=== PATIENT | female | born 1985 | race Caucasian/White ===

== ENCOUNTER → 2017-02-26 | Outpatient (CLI) | payer BC, MEDICAID ==
--- NOTE | 2017-02-27 15:38 | CR ---
EXAM DATE: 02/26/17 PATIENT'S AGE: 31 Patient: AJAY DECKER Facility: [place], [place] Site . Site : 1985 Study: XRay Knee Right [id number]/27/2017 10:55:57 AM Ordering Physician: Sasha Schumacher Final Report: INDICATION: Pain. TECHNIQUE: Three views COMPARISON: 05 July 2015. FINDINGS: Bones: Alignment is normal. No fractures or bone lesions. Joint spaces: Unremarkable. Soft tissues: Unremarkable. IMPRESSION: Negative. Dictated by Hitesh Martinez MD @ Feb 27 2017 11:35AM (Electronic Signature) Report Signed by Proxy. ANDREW
== END ==
LOC: MW.CHORTHO 08:48
PROVIDERS: ATTEND Physician Assistant
DX: M25.561 Pain in right knee (principal)
CPT/HCPCS: 73562-26-RT; 73562-RT

== ENCOUNTER 2017-07-04 21:38 | Emergency (ER) | payer BC ==
--- NOTE | 2017-07-04 21:58 | EDM.PDOC ---
ED HPI GENERAL MEDICAL PROBLEM - General Chief Complaint: Chest Pain Stated Complaint: PT HAS CHEST PAINS Time Seen by Provider: 07/04/17 21:55 - History of Present Illness INITIAL COMMENTS - FREE TEXT/NARRATIVE: HISTORY AND PHYSICAL: History of present illness: Patient 32-year-old female extensive past medical history including spinal stenosis related ankylosing spondylitis Carlo Smanuel's disease who presents with a concern of chest pain she states she has a lifelong [place] septal defect and right bundle branch block she is followed by cardiology and has an appointment scheduled in the near future for routine follow-up presents today with chest pain is vaguely described she states she is concerned primarily about pneumonia she had no fever chills nausea vomiting or other complaints. Review of systems: As per history of present illness and below otherwise all systems reviewed and negative. Past medical history: As per history of present illness and as reviewed below otherwise noncontributory. Surgical history: As per history of present illness and as reviewed below otherwise noncontributory. Social history: No reported history of drug or alcohol abuse. Family history: As per history of present illness and as reviewed below otherwise noncontributory. Physical exam: HEENT: Atraumatic, normocephalic, pupils reactive, negative for conjunctival pallor or scleral icterus, mucous membranes moist, throat clear, neck supple, nontender, trachea midline. Lungs: Clear to auscultation, breath sounds equal bilaterally, chest nontender. Heart: S1S2, regular, negative for clicks, rubs, or JVD. Abdomen: Soft, nondistended, nontender. Negative for masses or hepatosplenomegaly. Negative for costovertebral tenderness. Pelvis: Stable nontender. Genitourinary: Deferred. Rectal: Deferred. Extremities: Atraumatic, negative for cords or calf pain. Neurovascular unremarkable. Neuro: Awake, alert, oriented. Cranial nerves II through XII unremarkable. Cerebellum unremarkable. Motor and sensory unremarkable throughout. Exam nonfocal. Diagnostics: CBC CMP and troponin chest x-ray EKG Therapeutics: IV O2 monitor Impression: #1 chest pain #2 history of Carlos Manuel's disease #3 history of ankylosing spondylitis Definitive disposition and diagnosis as appropriate pending reevaluation and review of above. Left Upper Chest Pain Score (Numeric/FACES): 4 - Related Data Allergies Allergy/AdvReac Type Severity Reaction Status Date / Time Latex, Natural Rubber Allergy Rash Verified 07/26/16 15:14 NSAIDS (Non-Steroidal Allergy Stomach Verified 07/26/16 15:14 Anti-Inflamma Upset Sulfa (Sulfonamide Allergy Rash Verified 07/26/16 15:14 Antibiotics) Home Meds: Home Meds Levothyroxine Sodium [Synthroid] 112 mcg PO DAILY 08/10/14 [History] oxyCODONE 5 mg PO TID PRN 08/10/14 [History] Hydroxychloroquine Sulfate [Plaquenil] 200 mg PO DAILY 04/01/15 [History] predniSONE [Prednisone] 10 mg PO DAILY 04/01/15 [History] oxyCODONE ER [OxyCONTIN] 60 mg PO BID 07/26/16 [History] Adalimumab [Humira] 20 mg SQ ASDIRECTED 07/04/17 [History] Pregabalin [Lyrica] 25 mg PO BEDTIME 07/04/17 [History] Past Medical History Cardiovascular History: Reports: Other (See Below) Other Cardiovascular History: right bundle branch blockage and ASD Gastrointestinal History: Reports: Other (See Below) Other Gastrointestinal History: Lupus Musculoskeletal History: Reports: Other (See Below) Other Musculoskeletal History: KlippelFeil Syndrome Endocrine/Metabolic History: Reports: Other (See Below) Other Endocrine/Metabolic History: Carlos Manuel's disease, mixed connective tissue disease - Infectious Disease History Infectious Disease History: Reports: Shingles - Past Surgical History HEENT Surgical History: Reports: Tonsillectomy Female Surgical History: Reports: Hysterectomy Endocrine Surgical History: Reports: Thyroidectomy Social & Family History - Family History Family Medical History: Noncontributory - Tobacco Use Smoking Status *Q: Never Smoker Second Hand Smoke Exposure: No - Alcohol Use Days Per Week of Alcohol Use: 0 - Recreational Drug Use Recreational Drug Use: No ED ROS GENERAL - Review of Systems Review Of Systems: ROS reveals no pertinent complaints other than HPI. ED EXAM, GENERAL - Physical Exam Exam: See Below (See dictation) Course - Vital Signs Last Recorded V/S: Last Vital Signs Temp 36.1 C 07/04/17 21:41 Pulse 81 07/04/17 21:41 Resp 20 07/04/17 21:41 BP 135/87 07/04/17 21:41 Pulse Ox 100 07/04/17 21:41 - Orders/Labs/Meds Orders: Active Orders 24 hr Category Date Time Status EKG Documentation Completion [RC] STAT Care 07/04/17 21:47 Active Chest 1V Frontal [CR] Stat Exams 07/04/17 21:53 Taken Labs: Laboratory Tests 07/04/17 07/04/17 07/04/17 Range/Units 21:53 21:53 21:53 WBC 11.62 H (4.0-11.0) K/uL RBC 4.47 (4.30-5.90) M/uL Hgb 13.2 (12.0-16.0) g/dL Hct 38.7 (36.0-46.0) % MCV 86.6 (80.0-98.0) fL MCH 29.5 (27.0-32.0) pg MCHC 34.1 (31.0-37.0) g/dL RDW Std Deviation 39.3 (28.0-62.0) fl RDW Coeff of Fbay 12 (11.0-15.0) % Plt Count 235 (150-400) K/uL MPV 10.00 (7.40-12.00) fL Neut % (Auto) 60.9 (48.0-80.0) % Lymph % (Auto) 24.3 (16.0-40.0) % [place] % (Auto) 7.6 (0.0-15.0) % Eos % (Auto) 6.3 (0.0-7.0) % Baso % (Auto) 0.9 (0.0-1.5) % Neut # (Auto) 7.1 H (1.4-5.7) K/uL Lymph # (Auto) 2.8 H (0.6-2.4) K/uL [place] # (Auto) 0.9 H (0.0-0.8) K/uL Eos # (Auto) 0.7 (0.0-0.7) K/uL Baso # (Auto) 0.1 (0.0-0.1) K/uL Nucleated RBC % 0.0 /100WBC Nucleated RBCs # 0 K/uL Sodium 139 (136-146) mmol/L Potassium 3.6 (3.5-5.1) mmol/L Chloride 104 (98-110) mmol/L Carbon Dioxide 24 (21-31) mmol/L BUN 6 (6.0-23.0) mg/dL Creatinine 0.7 (0.6-1.5) mg/dL Est Cr Clr Drug Dosing 97.21 mL/min Estimated GFR (MDRD) > 60.0 ml/min Glucose 108 (60-110) mg/dL Calcium 9.5 (8.8-10.8) mg/dL Total Bilirubin 0.4 (0.1-1.5) mg/dL AST 17 (5-40) IU/L ALT 26 (8-54) IU/L Alkaline Phosphatase 57 (40-150) Troponin I < 0.10 (0.0-0.29) NG/ML Total Protein 6.9 (6.0-8.0) g/dL Albumin 4.4 (3.5-5.0) g/dL Globulin 2.5 (2.0-3.5) g/dL Albumin/Globulin Ratio 1.8 (1.3-2.8) Departure - Departure Time of Disposition: 22:53 Disposition: Home, Self-Care 01 Condition: Good Clinical Impression: Atypical chest pain, Ankylosing spondylitis - Discharge Information Referrals: PCP,None [Primary Care Provider] - Forms: ED Department Discharge Additional Instructions: The following information is given to patients seen in the emergency department who are being discharged to home. This information is to outline your options for follow-up care. We provide all patients seen in our emergency department with a follow-up referral. The need for follow-up, as well as the timing and circumstances, are variable depending upon the specifics of your emergency department visit. If you don't have a primary care physician on staff, we will provide you with a referral. We always advise you to contact your personal physician following an emergency department visit to inform them of the circumstance of the visit and for follow-up with them and/or the need for any referrals to a consulting specialist. The emergency department will also refer you to a specialist when appropriate. This referral assures that you have the opportunity for followup care with a specialist. All of these measure are taken in an effort to provide you with optimal care, which includes your followup. Under all circumstances we always encourage you to contact your private physician who remains a resource for coordinating your care. When calling for followup care, please make the office aware that this follow-up is from your recent emergency room visit. If for any reason you are refused follow-up, please contact the [facility] emergency department at and asked to speak to the emergency department charge nurse. Follow up primary medical doctor 1-2 days return as needed as discussed - My Orders Last 24 Hours: My Active Orders 07/04/17 21:47 EKG Documentation Completion [RC] STAT 07/04/17 21:53 Chest 1V Frontal [CR] Stat - Assessment/Plan Last 24 Hours: My Active Orders 07/04/17 21:47 EKG Documentation Completion [RC] STAT 07/04/17 21:53 Chest 1V Frontal [CR] Stat
[2017-07-04 22:24] LABS: CHLORIDE,CL 104 mmol/L (98-110); SODIUM,NA 139 mmol/L (136-146)
[2017-07-04 23:10] VITALS: BP 117/78
--- NOTE | 2017-07-07 16:03 | CR ---
EXAM DATE: 07/04/17 PATIENT'S AGE: 32 Patient: AJAY DECKER Facility: [place], [place] Site . Site : 1985 Study: XRay Chest [id number]/2/2017 10:10:31 PM Ordering Physician: Doctor Sahni Final Report: INDICATION: Chest Pain TECHNIQUE: Chest 2 views. COMPARISON: 05/01/14 FINDINGS: Cardiovascular and mediastinum: Heart size and vasculature are normal in caliber and appearance. Mediastinum is within normal limits. Lungs and pleural spaces: Lungs are clear. No sign of infiltrate or mass. No sign of pleural effusion. No pneumothorax. Bones and soft tissues: No significant findings. IMPRESSION: Unremarkable chest. Dictated by: Steffen Solis MD @ 07/04/2017 22:34:14 (Electronic Signature) Report Signed by Proxy. ANDREW
== END 2017-07-04 23:04 | disposition home or self-care (01) ==
LOC: MW.ED 21:38
DX: R07.89 Other chest pain (principal); M45.9 Ankylosing spondylitis of unspecified sites in spine; Z91.040 Latex allergy status; Z88.2 Allergy status to sulfonamides; Z79.899 Other long term (current) drug therapy; Z98.890 Other specified postprocedural states; Z90.710 Acquired absence of both cervix and uterus; Z86.39 Personal history of other endocrine, nutritional and metabolic disease
CPT/HCPCS: 36415; 71010; 71010-26; 80053; 84484; 85025; 93005; 99283; 99285-25

== ENCOUNTER 2021-09-11 18:12 | Emergency (ER) | payer BC, MEDICAID ==
[2021-09-11] MEDS ORDERED: Lactated Ringers 1,000 ML IV SCH (19:45)
[2021-09-11 20:20] LABS: BLOOD UREA NITROGEN,BUN 8 mg/dL (7.0-18.0); CARBON DIOXIDE,CO2 26.9 mmol/L (21.0-32.0); CHLORIDE,CL 98 mmol/L (98-107); GLUCOSE RANDOM 145 mg/dL (74-106); POTASSIUM,K 4.2 mmol/L (3.5-5.1); SODIUM,NA 134 mmol/L (136-145)
[2021-09-11] MEDS ORDERED: Acetaminophen 500 MG Tab PO ONE (21:16)
--- NOTE | 2021-09-11 21:19 | US ---
INDICATION: Left ovary complex mass on CT. COMPARISON: None. TECHNIQUE: 2D huizar scale and color Doppler images were acquired of the pelvis using a transvaginal approach. FINDINGS: The uterus is surgically absent. The right ovary measures 1.4 x 1.7 x 2.5 cm in size. Blood flow was not well seen within the right ovary which may be due to positioning. The left ovary measures 6.5 x 3.7 x 3.7 cm in size. Normal arterial and venous blood flow is seen within the left ovary on color Doppler analysis. There is a complex cystic lesion in the left ovary measuring approximately 1.9 x 2.4 x 3.2 cm which has the appearance of a hemorrhagic cyst. No internal vascularity. Moderate amount of complex free fluid in the pelvic cul-de-sac measuring 9.2 x 6.8 x 8.3 cm likely representing blood products. IMPRESSION: 1. 3.2 cm complex cystic lesion in the left ovary which most likely represents a hemorrhagic cyst. Consider follow-up ultrasound in 6-12 weeks to ensure resolution. 2. No evidence of left ovarian torsion. Blood flow was not well seen within the right ovary which may be due to positioning. 3. Moderate amount of complex free fluid in the pelvic cul-de-sac likely represents blood products related to cyst rupture. Dictated by Kristie Ngo MD @ 09/11/2021 9:18:52 PM (Electronically Signed)
--- NOTE | 2021-09-11 21:29 | EDM.PDOC ---
ED HPI GENERAL MEDICAL PROBLEM - General Chief Complaint: CREATIVE LEAD Problem Stated Complaint: OVARIAN CYST RUPTURE Time Seen by Provider: 09/11/21 19:15 - History of Present Illness INITIAL COMMENTS - FREE TEXT/NARRATIVE: CHIEF COMPLAINT(S): Abdominal pain HISTORY OF PRESENT ILLNESS: This is a 36-year-old woman with a past medical history of ankylosing spondylitis and psoriatic arthritis on Humira who comes to the emergency department with a chief complaint of abdominal pain. The patient states that she went and followed up with her primary care physician because of left-sided and left lower quadrant abdominal pain. She states that they initially thought it was probably due to urinary tract infection or a kidney stone however it appears that the patient was called back because she had a ovarian cyst with some blood in the pelvis and told to come to the emergency department. The patient states that the pain had progressively started since yesterday and worsened today however since getting the CT the pain has improved. She describes the pain as intermittent and sharp. She denies any vaginal bleeding, vaginal discharge. She said the pain starts in the left flank and radiates forward. There are no exacerbating factors. The pain seems to be improving slightly on its own. The patient states she is on pain clinic and does not want any pain medication at this time. REVIEW OF SYSTEMS: Constitutional: Denies fever, chills. Eyes: Denies eye pain Ears, Nose, Mouth, & Throat: Denies earache Cardiovascular: Denies chest pain Respiratory: Denies shortness of breath Gastrointestinal: Denies Nausea, vomiting, diarrhea, hematochezia. Genitourinary: Positive for left flank and left lower quadrant abdominal pain. Denies hematuria, dysuria vaginal bleeding or vaginal discharge Skin:Denies a rash MSK: Denies joint pain Neurological: Denies blurred vision Psychiatric: Denies depression PAST MEDICAL HISTORY: As per history of present illness and as reviewed below otherwise noncontributory. SURGICAL HISTORY: As per history of present illness and as reviewed below otherwise noncontributory. SOCIAL HISTORY: As per history of present illness and as reviewed below otherwise noncontributory. FAMILY HISTORY: As per history of present illness and as reviewed below otherwise noncontributory. EXAMINATION OF ORGAN SYSTEMS/BODY AREAS: Constitutional: Blood pressure was 123/60, heart rate 103, respiratory rate 18 with an oxygen saturation 98% on room air. Temperature 36.4 General: Well-appearing woman who is in no acute distress Psychiatric: Appropriate mood and affect. Eyes: No scleral icterus or conjunctival erythema ENMT: Moist mucous membranes. No pharyngeal erythema Cardiovascular: Regular, rate, and rhythm. No gallops, murmurs, or rubs. Bilateral upper extremity pulses symmetric and intact. No peripheral edema. No JVD. Respiratory: Lungs clear to auscultation bilaterally. No wheezes, rales, or rhonchi. Gastrointestinal: Soft, mild tenderness in the left lower quadrant, nondistended. No rebound or guarding. Normoactive bowel sounds Genitourinary: No suprapubic tenderness no CVA tenderness. Musculoskeletal: Normal range of motion. Skin: No lesions or abrasions. Neurological: Alert, GCS 15 MEDICAL DECISION MAKING AND COURSE IN THE ED WITH INTERPRETATION/REVIEW OF DIAGNOSTIC STUDIES: This is a 36-year-old woman with a past medical history of ankylosing spondylitis and psoriatic arthritis who is on a pain contract who was diagnosed with a ruptured hemorrhagic cyst at outpatient clinic who comes to the emergency department with improved left lower quadrant abdominal pain however sent here given the CT findings. I did review the patient's CT and it did reveal a moderate amount of blood in the left pelvic area with a 4 cm hemorrhagic cyst. Given the possibility of ovarian torsion we will obtain a transvaginal ultrasound and obtain basic labs including CBC and BMP. The patient was amenable to this plan. Given the patient does not want any pain m edication will hold off at this time. We will provide the patient with 1 L of lactated Ringer's and 4 mg of IV Zofran for nausea. DDx: Ovarian cyst rupture, hemorrhagic cyst, ovarian torsion Laboratory: CBC does reveal a leukocytosis of 16.18 with neutrophilic predominance likely secondary to demargination secondary to acute stress response. Hemoglobin is normal at 12.7 and hematocrit of 38.0. BMP reveals hyponatremia at 134 otherwise unremarkable. hCG is negative. The radiological images were viewed by myself along with reading the report from the radiologist. Transvaginal ultrasound reveals a 3.2 cm complex cystic lesion of the left ovary which most likely represents a hemorrhagic cyst. There is a moderate amount of complex free fluid in the pelvic cul-de-sac likely representing blood products. There is no evidence of left ovarian torsion and the blood flow in the right ovary was not well seen likely secondary to positioning. After imaging I did discuss the results with gynecologic specialist Dr. Fry who recommended symptom control and follow-up outpatient. I did discuss the results with the patient and she was amenable to this plan. She was given strict return precautions. The patient was amenable discharge and had no further questions DISPOSITION: The patient was discharged home in stable condition. The patient will follow up with gynecology and in 3 to 5 days CONDITION: Fair PROCEDURES: None FINAL IMPRESSION(S)/DIAGNOSES: 1. Acute left lower quadrant abdominal pain secondary to ruptured hemorrhagic cyst Charles Joyce M.D. abdomen Pain Score (Numeric/FACES): 6 - Related Data Allergies Allergy/AdvReac Type Severity Reaction Status Date / Time Latex, Natural Rubber Allergy Rash Verified 09/11/21 18:22 NSAIDS (Non-Steroidal Allergy Stomach Verified 09/11/21 18:22 Anti-Inflamma Upset Sulfa (Sulfonamide Allergy Rash Verified 09/11/21 18:22 Antibiotics) Home Meds: Home Meds Levothyroxine Sodium [Synthroid] 112 mcg PO DAILY 08/10/14 [History] oxyCODONE 5 mg PO TID PRN 08/10/14 [History] Hydroxychloroquine Sulfate [Plaquenil] 400 mg PO DAILY 04/01/15 [History] predniSONE [Prednisone] 12 mg PO DAILY 04/01/15 [History] oxyCODONE ER [OxyCONTIN] 60 mg PO BID 07/26/16 [History] Adalimumab [Humira] 20 mg SQ ASDIRECTED 07/04/17 [History] Pregabalin [Lyrica] 25 mg PO BEDTIME 07/04/17 [History] Ondansetron [Zofran ODT] 4 mg PO Q6H PRN #8 tab.dis 09/11/21 [Rx] Promethazine [Phenadoz] 25 mg RECTAL Q6H PRN #4 supp 09/11/21 [Rx] Past Medical History HEENT History: Reports: Otitis Media Cardiovascular History: Reports: Other (See Below) Other Cardiovascular History: right bundle branch blockage and ASD Respiratory History: Reports: None Gastrointestinal History: Reports: Other (See Below) Other Gastrointestinal History: Lupus Genitourinary History: Reports: None CREATIVE LEAD History: Reports: None Musculoskeletal History: Reports: Arthritis, Other (See Below) Other Musculoskeletal History: Alkanolyisis Spondolysis and scoritic arthritis Neurological History: Reports: None Psychiatric History: Reports: None Endocrine/Metabolic History: Reports: Other (See Below) Other Endocrine/Metabolic History: Carlos Manuel's disease, mixed connective tissue disease Hematologic History: Reports: None Immunologic History: Reports: None Oncologic (Cancer) History: Reports: None Dermatologic History: Reports: None - Infectious Disease History Infectious Disease History: Reports: Chicken Pox, Shingles - Past Surgical History Head Surgeries/Procedures: Reports: None HEENT Surgical History: Reports: Tonsillectomy Cardiovascular Surgical History: Reports: None Respiratory Surgical History: Reports: None GI Surgical History: Reports: None Female Surgical History: Reports: Hysterectomy Endocrine Surgical History: Reports: Thyroidectomy Neurological Surgical History: Reports: Other (See Below) Other Neurological Surgeries/Procedures: c2-c3 Musculoskeletal Surgical History: Reports: None Oncologic Surgical History: Reports: None Dermatological Surgical History: Reports: None Social & Family History - Family History Family Medical History: No Pertinent Family History Cardiac: Reports: Heart Failure Oncologic: Reports: Lung - Tobacco Use Tobacco Use Status *Q: Never Tobacco User Second Hand Smoke Exposure: No - Caffeine Use Caffeine Use: Reports: None - Recreational Drug Use Recreational Drug Use: No ED ROS GENERAL - Review of Systems Review Of Systems: See Below ED EXAM, GENERAL - Physical Exam Exam: See Below Course - Vital Signs Last Recorded V/S: Last Vital Signs Temp 36.3 C 09/11/21 23:02 Pulse 99 09/11/21 23:02 Resp 18 09/11/21 23:02 BP 125/68 09/11/21 23:02 Pulse Ox 97 09/11/21 23:02 - Orders/Labs/Meds Labs: Laboratory Tests 09/11/21 09/11/21 09/11/21 Range/Units 19:51 19:51 19:51 WBC 16.18 H (4.0-11.0) K/uL RBC 4.20 L (4.30-5.90) M/uL Hgb 12.7 (12.0-16.0) g/dL Hct 38.0 (36.0-46.0) % MCV 90.5 (80.0-98.0) fL MCH 30.2 (27.0-32.0) pg MCHC 33.4 (31.0-37.0) g/dL RDW Std Deviation 42.7 (28.0-62.0) fl RDW Coeff of Faby 13 (11.0-15.0) % Plt Count 281 (150-400) K/uL MPV 9.60 (7.40-12.00) fL Neut % (Auto) 81.5 H (48.0-80.0) % Lymph % (Auto) 12.5 L (16.0-40.0) % [place] % (Auto) 4.9 (0.0-15.0) % Eos % (Auto) 0.9 (0.0-7.0) % Baso % (Auto) 0.2 (0.0-1.5) % Neut # (Auto) 13.2 H (1.4-5.7) K/uL Lymph # (Auto) 2.0 (0.6-2.4) K/uL [place] # (Auto) 0.8 (0.0-0.8) K/uL Eos # (Auto) 0.1 (0.0-0.7) K/uL Baso # (Auto) 0.0 (0.0-0.1) K/uL Nucleated RBC % 0.0 /100WBC Nucleated RBCs # 0 K/uL Sodium 134 L (136-145) mmol/L Potassium 4.2 (3.5-5.1) mmol/L Chloride 98 (98-107) mmol/L Carbon Dioxide 26.9 (21.0-32.0) mmol/L BUN 8 (7.0-18.0) mg/dL Creatinine 0.8 (0.6-1.0) mg/dL Est Cr Clr Drug Dosing 81.97 mL/min Estimated GFR (MDRD) > 60.0 ml/min Glucose 145 H (74-106) mg/dL Calcium 8.5 (8.5-10.1) mg/dL HCG, Qual NEGATIVE (NEG) Blood Type Antibody Screen 09/11/21 Range/Units 19:54 WBC (4.0-11.0) K/uL RBC (4.30-5.90) M/uL Hgb (12.0-16.0) g/dL Hct (36.0-46.0) % MCV (80.0-98.0) fL MCH (27.0-32.0) pg MCHC (31.0-37.0) g/dL RDW Std Deviation (28.0-62.0) fl RDW Coeff of Faby (11.0-15.0) % Plt Count (150-400) K/uL MPV (7.40-12.00) fL Neut % (Auto) (48.0-80.0) % Lymph % (Auto) (16.0-40.0) % [place] % (Auto) (0.0-15.0) % Eos % (Auto) (0.0-7.0) % Baso % (Auto) (0.0-1.5) % Neut # (Auto) (1.4-5.7) K/uL Lymph # (Auto) (0.6-2.4) K/uL [place] # (Auto) (0.0-0.8) K/uL Eos # (Auto) (0.0-0.7) K/uL Baso # (Auto) (0.0-0.1) K/uL Nucleated RBC % /100WBC Nucleated RBCs # K/uL Sodium (136-145) mmol/L Potassium (3.5-5.1) mmol/L Chloride (98-107) mmol/L Carbon Dioxide (21.0-32.0) mmol/L BUN (7.0-18.0) mg/dL Creatinine (0.6-1.0) mg/dL Est Cr Clr Drug Dosing mL/min Estimated GFR (MDRD) ml/min Glucose (74-106) mg/dL Calcium (8.5-10.1) mg/dL HCG, Qual (NEG) Blood Type B NEGATIVE Antibody Screen NEGATIVE Meds: Medications Discontinued Medications Generic Name Dose Route Start Last Admin Trade Name Freq PRN Reason Stop Dose Admin Acetaminophen 1,000 mg 09/11/21 21:16 09/11/21 21:29 Acetaminophen 500 Mg Tab PO 09/11/21 21:17 1,000 mg ONETIME ONE Administration Lactated Ringer's 1,000 mls @ 999 mls/hr 09/11/21 19:45 09/11/21 19:55 Ringers, Lactated IV 999 mls/hr ASDIRECTED MARJORIE Administration Ondansetron HCl 4 mg 09/11/21 21:32 09/11/21 21:35 Ondansetron 4 Mg Tab.Dis PO 09/11/21 21:33 4 mg ONETIME ONE Administration Ondansetron HCl 4 mg 09/11/21 22:35 09/11/21 22:56 Ondansetron 4 Mg/2 Ml Sdv IVPUSH 09/11/21 22:36 4 mg ONETIME ONE Administration Departure - Departure Time of Disposition: 21:27 Disposition: Home, Self-Care 01 Condition: Fair Clinical Impression: Ovarian cyst rupture - Discharge Information *PRESCRIPTION DRUG MONITORING PROGRAM REVIEWED*: No *COPY OF PRESCRIPTION DRUG MONITORING REPORT IN PATIENT CAIO: No Prescriptions: Promethazine [Phenadoz] 25 mg RECTAL Q6H PRN #4 supp PRN Reason: Nausea Ondansetron [Zofran ODT] 4 mg PO Q6H PRN #8 tab.dis PRN Reason: Nausea/Vomiting Instructions: Ovarian Cyst, [id number] Referrals: Maricel Campoverde PRODUCT DEVELOPMENT CHEMIST [Primary Care Provider] - Forms: ED Department Discharge Additional Instructions: You were evaluated today on an emergent basis. At this time you do have evidence of the cyst on your left ovary with some blood in the pelvis in that area. This is concerning for a ruptured ovarian cyst which is not life-threatening. The pain should improve over time and we did discuss with the medical director on-call about your case. He recommends that you follow-up in clinic at your convenience. Please contact the number below. He recommend that you continue with the pain medication as prescribed. If you have any worsening symptoms you are welcome to return to the emergency department. In addition, all of your symptoms are on the left side, the ultrasound had difficulty visualizing blood flow to your right ovary which according to radiology and gynecology is likely due to positioning. [facility] (Dr. Fry) [address] [place] [id number] The patient is informed of any results of their evaluation and diagnostic workup and all questions are answered. They are given discharge instructions and return precautions. The patient is stable for discharge. The patient states they understand and agree with the plan and that they will return if their symptoms get worse or if they have any new concerns. The following information is given to patients seen in the emergency department who are being discharged to home. This information is to outline your options for follow-up care. We provide all patients seen in our emergency department with a follow-up referral. The need for follow-up, as well as the timing and circumstances, are variable depending upon the specifics of your emergency department visit. If you don't have a primary care physician on staff, we will provide you with a referral. We always advise you to contact your personal physician following an emergency department visit to inform them of the circumstance of the visit and for follow-up with them and/or the need for any referrals to a consulting specialist. The emergency department will also refer you to a specialist when appropriate. This referral assures that you have the opportunity for follow-up care with a specialist. All of these measure are taken in an effort to provide you with optimal care, which includes your follow-up. Under all circumstances we always encourage you to contact your private physician who remains a resource for coordinating your care. When calling for follow-up care, please make the office aware that this follow-up is from your recent emergency room visit. If for any reason you are refused follow-up, please contact the [facility] Emergency Department at and asked to speak to the emergency department charge nurse. Sepsis Event Note (ED) - Evaluation Sepsis Screening Result: No Definite Risk
[2021-09-11] MEDS ORDERED: Ondansetron 4 MG Tab.DIS PO ONE (21:32)
[2021-09-11] MEDS ORDERED: Ondansetron 4 MG/2 ML SDV IVPUSH ONE (22:35)
[2021-09-11 23:03] VITALS: BP 125/68; PULSE 99
== END 2021-09-11 23:09 | disposition home or self-care (01) ==
LOC: MW.ED 18:12
DX: N83.202 Unspecified ovarian cyst, left side (principal); Z91.040 Latex allergy status; Z88.6 Allergy status to analgesic agent; Z88.2 Allergy status to sulfonamides
CPT/HCPCS: 36415; 76830; 80048; 84703; 85025; 86850; 86900; 86901; 96374; 99284; A9270; J2405; J7120

== ENCOUNTER 2024-03-14 08:49 | Emergency (ER) | payer BC ==
[2024-03-14 09:29] LABS: HEMATOCRIT 39.5 % (37.0-47.0); HEMOGLOBIN 13.4 g/dL (12.0-16.0); MEAN CORPUSCULAR HEMOGLOBIN 30.5 pg (28.0-32.0); MEAN CORPUSCULAR HGB CONC 33.9 g/dL (32.0-36.0); MEAN CORPUSCULAR VOLUME 89.8 fL (83.0-99.0); MEAN PLATELET VOLUME 9.6 fL (9.4-12.3); PLATELET COUNT,PLT 276 K/uL (150-400); WHITE BLOOD CELL COUNT,WBC 13.35 K/uL (3.9-11.3)
[2024-03-14 09:33] LABS: APPEARANCE,URINE CLEAR; BILIRUBIN,URINE NEGATIVE (NEGATIVE); COLOR,URINE YELLOW; GLUCOSE,URINE NEGATIVE (NEGATIVE); KETONES,URINE NEGATIVE (NEGATIVE); LEUKOCYTE ESTERASE,URINE NEGATIVE (NEGATIVE); NITRITE,URINE NEGATIVE (NEGATIVE); OCCULT BLOOD,URINE NEGATIVE (NEGATIVE); PROTEIN,URINE NEGATIVE (NEGATIVE); UROBILINOGEN,URINE 0.2 EU/dL (<2.0)
[2024-03-14 09:40] LABS: A/G RATIO 1.2 (0.9-1.6); ALBUMIN 3.9 g/dL (3.4-5.0); BILIRUBIN TOTAL 0.4 mg/dL (0.2-1.0); CALCIUM 8.8 mg/dL (8.5-10.1); CARBON DIOXIDE,CO2 24.6 mmol/L (21.0-32.0); CREATININE 0.7 mg/dL (0.6-1.0); EST CRCL DRUG DOSING (CG) 91.91 mL/min; POTASSIUM,K 3.5 mmol/L (3.5-5.1); PROTEIN TOTAL,TP 7.2 g/dL (6.4-8.2)
[2024-03-14] MEDS: Morphine 4 MG/ML Syringe IVPUSH ONE (09:40)
[2024-03-14] MEDS: Sodium Chloride 0.9% 2.5 ML Syringe FLUSH PRN (09:40)
[2024-03-14] MEDS: Sodium Chloride 0.9% 10 ML Syringe FLUSH PRN (09:41)
[2024-03-14 09:57] LABS: SEG NEUTROPHILS ABSOLUTE MAN 5.34 K/uL (1.80-7.70); SEG NEUTROPHILS PERCENT MAN 40 % (41-71)
[2024-03-14 09:58] LABS: BASOPHILS ABSOLUTE MAN 0.13 K/uL (0.00-0.20); BASOPHILS PERCENT MAN 1 % (0-1); EOSINOPHILS ABSOLUTE MAN 1.47 K/uL (0.00-0.45); EOSINOPHILS PERCENT MAN 11 % (0-6); LYMPHOCYTES ABSOLUTE MAN 5.87 K/uL (1.00-4.80); LYMPHOCYTES PERCENT MAN 44 % (24-44); MONOCYTES ABSOLUTE MAN 0.53 K/uL (0.00-0.80); MONOCYTES PERCENT MAN 4 % (0-8)
[2024-03-14] MEDS: Iopamidol 755 MG/ML 500 ML Multipack Bottle IVPUSH STA (11:15)
[2024-03-14 12:29] VITALS: BP 112/76; PULSE 82
== END 2024-03-14 12:29 | disposition home or self-care (01) ==
LOC: MW.ED 08:49
DX: R10.9 Unspecified abdominal pain (principal); Z91.040 Latex allergy status; Z88.6 Allergy status to analgesic agent; Z88.2 Allergy status to sulfonamides; Z79.899 Other long term (current) drug therapy; Z75.8 Other problems related to medical facilities and other health care
CPT/HCPCS: 36415; 74177; 80053; 81003; 81025; 83690; 85025; 96374; 99284; J2270; J3490; Q9967